=== PATIENT | male | born 1980 | race Caucasian/White ===

== ENCOUNTER 2025-03-19 13:12 | Emergency (ER) | payer OTHER, BC ==
[2025-03-19] MEDS: Ketorolac 30 MG/ML SDV IM ONE (14:01)
[2025-03-19] MEDS: Orphenadrine 60 MG/2 ML Inj IM ONE (14:02)
[2025-03-19] MEDS: Dexamethasone Sod Phos Preservative Free 10 MG/ML Vial IM ONE (14:02)
== END 2025-03-19 15:01 | disposition home or self-care (01) ==
LOC: MW.ED 13:12
DX: S13.4XXA Sprain of ligaments of cervical spine, initial encounter (principal); Z75.3 Unavailability and inaccessibility of health-care facilities; Z79.899 Other long term (current) drug therapy
CPT/HCPCS: 72125; 72128; 96372; 99283; A9270; J1100; J1885; J2360

== ENCOUNTER 2025-04-19 18:03 | Emergency (ER) | payer BC, OTHER ==
[2025-04-19 19:01] LABS: BASOPHILS ABSOLUTE AUTO 0.02 K/uL (0.00-0.20); BASOPHILS PERCENT AUTO 0.2 % (0.0-1.0); EOSINOPHILS ABSOLUTE AUTO 0.00 K/uL (0.00-0.45); EOSINOPHILS PERCENT AUTO 0.0 % (0.0-6.0); IMMATURE GRAN ABSOLUTE AUTO 0.03 K/uL (0.00-0.05); IMMATURE GRAN PERCENT AUTO 0.2 % (0.0-0.4); LYMPHOCYTES ABSOLUTE AUTO 1.09 K/uL (1.00-4.80); LYMPHOCYTES PERCENT AUTO 8.3 % (24.0-44.0); MEAN PLATELET VOLUME 9.9 fL (9.4-12.4); MONOCYTES ABSOLUTE AUTO 0.07 K/uL (0.00-0.80); MONOCYTES PERCENT AUTO 0.5 % (0.0-8.0); NEUTROPHILS ABSOLUTE AUTO 12.00 K/uL (1.80-7.70); NEUTROPHILS PERCENT AUTO 90.8 % (41.0-71.0); NRBC ABSOLUTE 0.00 K/uL (0.00-0.02); NRBC PERCENT 0.0 /100WBC (0.0-0.2); PLATELET COUNT,PLT 276 K/uL (150-400); RED BLOOD CELL COUNT 5.46 M/uL (4.52-5.90); WHITE BLOOD CELL COUNT,WBC 13.21 K/uL (3.9-11.3)
[2025-04-19 19:21] LABS: A/G RATIO 0.9 (0.9-1.6); ALANINE AMINOTRANSFERASE,ALT 18.0 IU/L (14-63); ASPARTATE AMNIOTRANSFERASE,AST 21.0 IU/L (15-37); BILIRUBIN TOTAL 0.3 mg/dL (0.2-1.0); BLOOD UREA NITROGEN,BUN 17.0 mg/dL (7.0-18.0); CARBON DIOXIDE,CO2 25.0 mmol/L (21.0-32.0); CHLORIDE,CL 106.0 mmol/L (98-107); CREATININE 1.3 mg/dL (0.8-1.3); EST CRCL DRUG DOSING (CG) 80.42 mL/min; GLUCOSE RANDOM 193.0 mg/dL (74-106); POTASSIUM,K 4.2 mmol/L (3.5-5.1); PROTEIN TOTAL,TP 7.3 g/dL (6.4-8.2); SODIUM,NA 139.0 mmol/L (136-148)
[2025-04-19 19:24] LABS: ESTIMATED GFR 70.0 mL/min (>60)
[2025-04-19 19:46] LABS: APPEARANCE,URINE CLOUDY; GLUCOSE,URINE 100 mg/dL (NEGATIVE); OCCULT BLOOD,URINE LARGE (NEGATIVE)
== END 2025-04-19 20:29 | disposition home or self-care (01) ==
LOC: MW.ED 18:03
DX: N39.0 Urinary tract infection, site not specified (principal); F17.200 Nicotine dependence, unspecified, uncomplicated; Z79.899 Other long term (current) drug therapy; Z96.0 Presence of urogenital implants
CPT/HCPCS: 36415; 74176; 80053; 81003; 85025; 99284; A9270; 99283